=== PATIENT | male | born 1950 | race Caucasian/White ===

== ENCOUNTER → 2016-07-04 | Outpatient (CLI) | payer MEDICARE, OTHER ==
[~2016-07-04] MED LIST: LOSA1TAB18 PO; METO200T3 PO
[2016-07-04] MEDS: IOHEXOL 300 MG/ML 75 ML VIAL. IV ONE (15:39)
--- NOTE | 2016-07-04 15:55 | RAD ---
Indication shortness of breath. Chest pain. Duration of symptoms approximately one week. Elevated d-dimer. Approximately 150 cc of contrast was administered. On the first bolus administration the pulmonary arteries were not well opacified and a second bolus and imaging set through the chest was obtained. The first set of images were not reviewed by me. MIP images were generated and reviewed. No prior CT imaging of the chest is available. The ascending thoracic aorta is prominent measuring approximately 4.7 cm in greatest dimension. No acute finding is seen associated with the thoracic aorta. There is some coronary artery calcification. A few mediastinal lymph nodes are noted. These are likely reactive. Definite pathologic hilar or mediastinal adenopathy is not seen. The study is negative for pulmonary embolus. A dominant soft tissue mass in either lung is not seen. Definite acute parenchymal infiltrate in either lung is not seen IMPRESSION: No acute finding seen in the chest. Aneurysmal dilatation of the ascending thoracic aorta. It is dilated maximally to approximately 4.7 cm. Negative study for pulmonary embolus PQRS Compliance Statement: One or more of the following individualized dose reduction techniques were utilized for this examination: 1. Automated exposure control 2. Adjustment of the mA and/or kV according to patient size 3. Use of iterative reconstruction technique
== END | disposition home or self-care (01) ==
LOC: CT 14:58
PROVIDERS: ATTEND Family Medicine
DX: I71.2 Thoracic aortic aneurysm, without rupture (principal); R06.00 Dyspnea, unspecified; R07.89 Other chest pain; R06.02 Shortness of breath
CPT/HCPCS: 71275; Q9967